=== PATIENT | female | born 1955 | race Hispanic/Latino ===

== ENCOUNTER 2017-04-22 12:19 | Emergency (ER) | payer OTHER ==
[2017-04-22 12:19] VITALS: BMI 24.3
[2017-04-22 12:28] VITALS: BP 161/90; PULSE 90; RESP 18; TEMP 98.6; O2SAT 97
--- NOTE | 2017-04-22 13:38 | RAD ---
PROCEDURE: Right Knee Radiographs. HISTORY: 61yoF, fall, injury to the right knee COMPARISON: None. FINDINGS: BONES: Normal. No fracture. JOINTS: Mild degenerative changes in the patellofemoral joint JOINT EFFUSION: None. 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 There is a soft tissue density posterior to the knee joint that probably corresponds to the Tang cyst. This measures 9 cm in length and 5 cm in diameter. IMPRESSION: No evidence of fracture. See comments
--- NOTE | 2017-04-22 13:46 | ED PDOC ---
Arrival/HPI - General Chief Complaint: Lower Extremity Problem/Injury Time Seen by Provider: 04/22/17 12:30 Historian: Patient, Spouse - History of Present Illness Narrative History of Present Illness (Text): you were treated in the ED today for history of rheumatoid arthritis, prior knee surgery, with fall yesterday on the right knee with pain and right hand without pain otherwise without any head injury/neck pain/nausea/vomiting/ headache/dizziness/difficulty breathing/chest pain/abdomen pain/numbness/ tingling/loss of limb function/pain with urination. 04/22/17 13:43 Time/Duration: 24 hours Symptom Onset: Gradual Symptom Course: Unchanged Severity Level: 2 Activities at Onset: Light Context: Walking Past Medical History - Provider Review Nursing Documentation Reviewed: Yes - Travel History Have you recently traveled outside [place] w/in the past 3 mons?: No - Infectious Disease Hx of Infectious Diseases: None - Reproductive Menopause: Yes - Musculoskeletal/Rheumatological Hx Rheumatoid Arthritis: Yes - Psychiatric Hx Substance Use: No - Surgical History Other/Comment: bilat knee surgery. bilat bunionectomy - Anesthesia Hx Anesthesia Reactions: No Hx Malignant Hyperthermia: No Family/Social History - Physician Review Nursing Documentation Reviewed: Yes Family/Social History: No Known Family HX Smoking Status: Never Smoked Hx Alcohol Use: No Hx Substance Use: No Allergies/Home Meds Allergies/Adverse Reactions: Allergies infliximab [From Remicade] Allergy (Verified 10/21/16 10:38) ANAPHYLAXIS Home Medications: Home Meds Medication Instructions Recorded Confirmed Celebrex 200 mg PO BID 10/21/16 04/15/17 DULoxetine [Cymbalta] 60 mg PO DAILY 10/21/16 04/15/17 Fexofenadine HCl [Padmaja NF] 180 mg PO DAILY 10/21/16 04/15/17 Folic Acid 1 mg PO DAILY 10/21/16 04/15/17 Hydrocodon-Acetaminophn 10-325 1 mg PO Q6H PRN 10/21/16 04/15/17 Zolpidem [Ambien] 10 mg PO HS 10/21/16 04/15/17 Leflunomide [Arava] 20 mg PO QOTHERDAY 04/12/17 04/15/17 Methotrexate 25 mg/ml Vial 12.5 mg SQ FRI 04/12/17 04/15/17 Review of Systems - Patients Enrolled in [employer] [X]: A conversation was conducted with the primary medical doctor. - Review of Systems Constitutional: Normal Eyes: Normal ENT: Normal Respiratory: Normal Cardiovascular: Normal Gastrointestinal: Normal Musculoskeletal: Joint Swelling (right) Skin: Normal Neurological: Normal Endocrine: Normal Hemo/Lymphatic: Normal Psychiatric: Normal Physical Exam Vital Signs Reviewed: Yes Vital Signs Temp Pulse Resp BP Pulse Ox 04/22/17 12:19 98.6 F 90 18 161/90 H 97 Temperature: Afebrile Blood Pressure: Hypertensive Pulse: Regular Respiratory Rate: Normal Appearance: Positive for: Well-Appearing Pain Distress: Mild Mental Status: Positive for: Alert and Oriented X 3 - Systems Exam Head: Present: Atraumatic, Normocephalic Pupils: Present: PERRL Extroacular Muscles: Present: EOMI Conjunctiva: Present: Normal Ears: Present: Normal Mouth: Present: Moist Mucous Membranes Pharnyx: Present: Normal Nose (External): Present: Atraumatic Nose (Internal): Present: Normal Inspection Neck: Present: Normal Range of Motion, Other (no cervical or thoracic or lumbar spinal or paraspinal tenderness) Respiratory/Chest: Present: Clear to Auscultation Cardiovascular: Present: Regular Rate and Rhythm Abdomen: No: Tenderness, Distention, Normal Bowel Sounds, Peritoneal Signs, Rebound, Guarding, McBurney's Point Tender, Rovsing's Sign Present, Hernias, Feeding Tubes, Ostomy Tubes, Mass/Organomegaly, Scars, Other Back: Present: Normal Inspection Upper Extremity: Present: Normal Inspection Lower Extremity: Present: Other (right knee with mild swelling wo thrill or erythema/fluctuance/crepitus or laxity. othewise b/l warm/pink/cap refill/dp pulse+.) Neurological: Present: GCS=15, CN II-XII Intact Skin: Present: Warm, Normal Color Psychiatric: Present: Alert, Oriented x 3, Normal Insight, Normal Concentration Medical Decision Making ED Course and Treatment: 04/22/17 13:48 you were treated in the ED today for history of rheumatoid arthritis, prior knee surgery, with fall yesterday on the right knee with pain and right hand without pain otherwise without any head injury/neck pain/nausea/vomiting/ headache/dizziness/difficulty breathing/chest pain/abdomen pain/numbness/ tingling/loss of limb function/pain with urination. You were otherwise breathing easily, smiling with your , good strength/sensation, difficulty bearing weight/walking, clear lungs, no abdomen tenderness, right knee with swelling but no redness or sign of infection or laxity and no calf pain or tenderness or swelling, no fever temp 98.1, stable heart rate 90, stable breathing rate 18, excellent oxygen level 97% room air, elevated blood pressure 161/90 which we recommend repeat in 2-3 days primary care office to determine further treatment, you have right knee xray without acute fracture but back of knee gonzalez's cyst, you didnt' want pain medication in the ED but due to difficulty bearing weight recommended right knee immobilizer and crutches done in the ED with improvement, counselled to rest and home with leg elevation and thus discharged home with . 1. Recommend tylenol or motrin as directed for mild moderate pain. 2. Recommend hydrocodone as previously prescribed for breakthrough pain and don't work/drive/drink alcohol when using. 3. Recommend followup primary care 2-3 days to review symptoms, orthopedics referral, vascular surgery referral for back of right knee cyst to ensure no complications. 4. If any worsening pain, fever, chills, nausea, vomiting, difficulty breathing, numbness, loss of limb function, pain with urination or any medical condition then return to the ED. Reassessment Condition: Re-examined - RAD Interpretation Narrative RAD Interpretations (Text): 04/22/17 13:52 no acute fracture Radiology Orders: 04/22/17 12:30 KNEE W PATELLA RIGHT 3 VIEW [RAD] Stat Personnel Training Officer: Radiologist Disposition/Present on Arrival - Present on Arrival Any Indicators Present on Arrival: No History of DVT/PE: No History of Uncontrolled Diabetes: No Urinary Catheter: No History of Decub. Ulcer: No History Surgical Site Infection Following: None - Disposition Have Diagnosis and Disposition been Completed?: Yes Diagnosis: Knee pain Disposition: HOME/ ROUTINE Disposition Time: 13:52 Patient Plan: Discharge Patient Problems: Current Active Problems Problem Status Onset Knee pain Acute Condition: IMPROVED Discharge Instructions (ExitCare): Knee Pain (ED) Additional Instructions: you were treated in the ED today for history of rheumatoid arthritis, prior knee surgery, with fall yesterday on the right knee with pain and right hand without pain otherwise without any head injury/neck pain/nausea/vomiting/ headache/dizziness/difficulty breathing/chest pain/abdomen pain/numbness/ tingling/loss of limb function/pain with urination. You were otherwise breathing easily, smiling with your , good strength/sensation, difficulty bearing weight/walking, clear lungs, no abdomen tenderness, right knee with swelling but no redness or sign of infection or laxity and no calf pain or tenderness or swelling, no fever temp 98.1, stable heart rate 90, stable breathing rate 18, excellent oxygen level 97% room air, elevated blood pressure 161/90 which we recommend repeat in 2-3 days primary care office to determine further treatment, you have right knee xray without acute fracture but back of knee gonzalez's cyst, you didnt' want pain medication in the ED but due to difficulty bearing weight recommended right knee immobilizer and crutches done in the ED with improvement, counselled to rest and home with leg elevation and thus discharged home with . 1. Recommend tylenol or motrin as directed for mild moderate pain. 2. Recommend hydrocodone as previously prescribed for breakthrough pain and don't work/drive/drink alcohol when using. 3. Recommend followup primary care 2-3 days to review symptoms, orthopedics referral, vascular surgery referral for back of right knee cyst to ensure no complications. 4. If any worsening pain, fever, chills, nausea, vomiting, difficulty breathing, numbness, loss of limb function, pain with urination or any medical condition then return to the ED. Referrals: Yash Garcia, [Primary Care Provider] - Follow up with primary
== END 2017-04-22 14:07 | disposition home or self-care (01) ==
LOC: ED 12:19
DX: M25.561 Pain in right knee (principal); M06.9 Rheumatoid arthritis, unspecified